=== PATIENT | male | born 1980 | race Caucasian/White ===

== ENCOUNTER 2017-01-01 08:56 | Emergency (ER) | payer BC, OTHER ==
--- NOTE | 2017-01-01 09:20 | ERPHSYRPT ---
- History of Present Illness Time Seen by Provider: 01/01/17 09:10 Source: patient Exam Limitations: no limitations Patient Subjective Stated Complaint: PT HERE FOR PAIN TO RIGHT FLANK AND ABD, WAS TREATED IN [place] FOR A KIDNEY STONE AND STATES PAIN MEDS ARE NOT HELPING LAST WAS AT 0530 TODAY, NO NAUSEA Triage Nursing Assessment: PT ALERT, WALKED IN, GAURDING ABD, RESP EASY,SKIN W/D Physician History: Pt. reports 4.8 mm right kidney stone yesterday while on vacation in [place]. He presents with worsening pain right flank. He is urinating without difficulty. Timing/Duration: yesterday Activites at Onset: none Quality: sharpness Onset Location: right flank Severity of Pain-Max: severe Severity of Pain-Current: severe Modifying Factors: Improves With: nothing Associated Symptoms: denies symptoms Prior abdominal problems: none Sexual intercourse history: non-contributory Allergies/Adverse Reactions: Penicillins Allergy (Verified 01/01/17 09:06) Home Medications: Ondansetron [Zofran Odt] 4 mg QID 01/01/17 [History] Oxycodone HCl/Acetaminophen [Percocet 5-325 mg Tablet] 1 ea Q6HPRN PRN 01/01/17 [History] Tamsulosin HCl 0.4 mg [Flomax 0.4 MG] 0.4 mg DAILY 01/01/17 [History] Hx Tetanus, Diphtheria Vaccination/Date Given: Yes Hx Influenza Vaccination/Date Given: No Hx Pneumococcal Vaccination/Date Given: No Immunizations Up to Date: Yes - Social History Smoking Status: Never smoker Exposure to second hand smoke: No Patient Lives Alone: No - Review of Systems Constitutional: No Symptoms Eyes: No Symptoms Ears, Nose, & Throat: No Symptoms Respiratory: No Symptoms Cardiac: No Symptoms Abdominal/Gastrointestinal: No Symptoms Genitourinary Symptoms: Other (right flank pain), No Dysuria Musculoskeletal: No Symptoms Skin: No Symptoms Neurological: No Symptoms Psychological: No Symptoms Endocrine: No Symptoms Hematologic/Lymphatic: No Symptoms - Nursing Vital Signs Nursing Vital Signs: Initial Vital Signs Temperature 98 F Temperature Source Oral Pulse Rate 76 Respiratory Rate 18 Blood Pressure [Right Arm] 157/90 Pain Intensity 6 - Physical Exam General Appearance: moderate distress Eye Exam: eyes nml inspection Ears, Nose, Throat Exam: normal ENT inspection, pharynx normal, moist mucous membranes Neck Exam: normal inspection, non-tender, supple, full range of motion Respiratory Exam: normal breath sounds, lungs clear, airway intact Cardiovascular Exam: regular rate/rhythm, normal heart sounds, normal peripheral pulses Gastrointestinal/Abdomen Exam: soft, normal bowel sounds Back Exam: CVA tenderness (right) Extremity Exam: normal inspection, normal range of motion, pelvis stable Neurologic Exam: alert, oriented x 3, cooperative Skin Exam: normal color, warm, dry Lymphatic Exam: adenopathy SpO2 Interpretation: normal SpO2: 97 Oxygen Delivery: Room Air - Course Nursing assessment & vital signs reviewed: Yes - CT Exams Abdomen/Pelvis CT Interpretation: Tele-radiologist Report (5-6 mm proximal right ureteral stone creating high-grade obstruction.) Ordered Tests: Active Orders 24 hr Category Date Time Status Clean Catch Urine Specimen STAT Care 01/01/17 09:23 Active IV Insertion STAT Care 01/01/17 09:21 Active ABDOMEN AND PELVIS W/0 CONTRAS [CT] Stat Exams 01/01/17 09:23 Completed CMP Stat Lab 01/01/17 09:25 Completed UA W/ MICROSCOPIC Stat Lab 01/01/17 10:51 Completed Medication Summary Discontinued Medications Generic Name Dose Route Start Last Admin Trade Name Freq PRN Reason Stop Dose Admin Hydromorphone HCl 1 mg 01/01/17 09:27 01/01/17 09:36 Hydromorphone 1 Mg/Ml Ampule IV 01/01/17 09:28 1 mg STAT ONE Administration Hydromorphone HCl Confirm 01/01/17 09:34 Hydromorphone 1 Mg/Ml Ampule Administered 01/01/17 09:35 Dose 1 mg .ROUTE .STK-MED ONE Sodium Chloride 1,000 mls @ 999 mls/hr 01/01/17 09:26 01/01/17 09:36 Sodium Chloride 0.9% 1000 Ml IV 01/01/17 10:26 999 mls/hr .Q1H1M STA Administration Sodium Chloride Confirm 01/01/17 09:34 Sodium Chloride 0.9% 1000 Ml Administered 01/01/17 09:35 Dose 1,000 mls @ ud .ROUTE .STK-MED ONE Ketorolac Tromethamine 30 mg 01/01/17 10:16 01/01/17 10:20 Toradol 30 Mg Injection IV 01/01/17 10:17 30 mg STAT ONE Administration Ketorolac Tromethamine Confirm 01/01/17 10:17 Toradol 30 Mg Injection Administered 01/01/17 10:18 Dose 30 mg .ROUTE .STK-MED ONE Ondansetron HCl 4 mg 01/01/17 09:27 01/01/17 09:36 Zofran 4 Mg/2 Ml Vial IV 01/01/17 09:28 4 mg STAT ONE Administration Ondansetron HCl Confirm 01/01/17 09:34 Zofran 4 Mg/2 Ml Vial Administered 01/01/17 09:35 Dose 4 mg .ROUTE .STK-MED ONE Lab/Rad Data: Laboratory Result Diagrams 01/01/17 09:25 Laboratory Results 01/01/17 01/01/17 Range/Units 10:51 09:25 Sodium 138 (136-145) mEq/L Potassium 3.8 (3.5-5.1) mEq/L Chloride 104 (98-107) mEq/L Carbon Dioxide 24.7 (21-32) mEq/L Anion Gap 13.1 (5-15) MEQ/L BUN 11 (9-20) mg/dL Creatinine 1.28 (0.55-1.30) mg/dl Estimated GFR > 60 ML/MIN Glucose 117 H (70-110) MG/DL Calcium 8.9 (8.5-10.1) mg/dL Total Bilirubin 1.90 H (0.2-1.0) mg/dL AST 30 (15-37) U/L ALT 45 (12-78) U/L Alkaline Phosphatase 74 (46-116) U/L Serum Total Protein 7.4 (6.4-8.2) gm/dL Albumin 4.0 (3.4-5.0) g/dL Ur Collection Type CLEAN CATCH Urine Color YELLOW (YELLOW) Urine Appearance CLEAR (CLEAR) Urine pH 7.0 (5-6) Ur Specific [place] 1.015 (1.005-1.025) Urine Protein NEGATIVE (Negative) Urine Glucose (UA) NEGATIVE (NEGATIVE) mg/dL Urine Ketones NEGATIVE (NEGATIVE) Urine Nitrite NEGATIVE (NEGATIVE) Urine Bilirubin NEGATIVE (NEGATIVE) Urine Urobilinogen 0.2 (0-1) mg/dL Urine WBC (Auto) NEGATIVE (NEGATIVE) Urine RBC (Auto) SMALL (0-5) Govind/ul Urine Microscopic RBC 5-10 (0-2) /HPF Ur Epithelial Cells FEW (FEW) /HPF Urine Bacteria FEW (NEGATIVE) /HPF Urine Mucus SLIGHT (NEGATIVE) /HPF Specimen Received 1045 -05 - Progress Progress: pain not gone completely Discussed with DrJayla: Other (Wil) Counseled pt/family regarding: lab results, diagnosis, need for follow-up, rad results - Departure Time of Disposition: 11:15 Departure Disposition: Transfer Clinical Impression: Ureterolithiasis, Obstructive uropathy, Hyperbilirubinemia Condition: Stable Critical Care Time: No
[2017-01-01] MEDS ORDERED: Sodium Chloride 0.9% 1000 ML 1,000 ML IV STA (09:26)
[2017-01-01] MEDS ORDERED: Hydromorphone 1 mg/ml Ampule IV ONE ×2 (09:27→11:37)
[2017-01-01] MEDS ORDERED: Zofran 4 MG/2 ML VIAL IV ONE (09:27)
[2017-01-01] MEDS ORDERED: Sodium Chloride 0.9% 1000 ML 1,000 ML ONE (09:34)
[2017-01-01] MEDS ORDERED: Zofran 4 MG/2 ML VIAL ONE (09:34)
[2017-01-01] MEDS ORDERED: Hydromorphone 1 mg/ml Ampule ONE ×2 (09:34→11:36)
[2017-01-01 09:45] LABS: ALKALINE PHOSPHATASE 74 U/L (46-116); ANION GAP 13.1 MEQ/L (5-15); BLOOD UREA NITROGEN 11 mg/dL (9-20); CHLORIDE 104 mEq/L (98-107); Carbon Dioxide 24.7 mEq/L (21-32); Glucose 117 MG/DL (70-110); Potassium 3.8 mEq/L (3.5-5.1); SGOT/AST 30 U/L (15-37); SGPT/ALT 45 U/L (12-78); SODIUM 138 mEq/L (136-145); Total Protein 7.4 gm/dL (6.4-8.2)
--- NOTE | 2017-01-01 10:11 | XRAY ---
Indication: Right flank pain. Stone. Multiple contiguous axial images obtained through the abdomen and pelvis without contrast using renal stone protocol. Comparison: None Lung bases are clear. Heart is not enlarged. There is a 5-6 mm calculus in the proximal right ureter, approximately L4 level. Proximal right ureter is prominent and there is moderate hydronephrosis with moderate perinephric stranding and tiny perinephric fluid consistent with high-grade obstruction. 3 additional right renal punctate calculi. Noncontrasted stomach and bowel loops appear nonobstructed. Mild fecal debris in the ascending and transverse colon. Normal-appearing appendix. No free fluid/air. Remaining liver, gallbladder, pancreas, spleen, adrenal glands, left kidney, left ureter, bladder, and aorta appear unremarkable for noncontrast exam. Osseous structures intact. Impression: 5-6 mm proximal right ureteral calculus producing high-grade obstruction. Additional right renal micro-calculi. CTDI 23.68
[2017-01-01] MEDS ORDERED: TORAdol 30 mg Injection IV ONE (10:16)
[2017-01-01] MEDS ORDERED: TORAdol 30 mg Injection ONE (10:17)
[2017-01-01 10:51] LABS: Collection Type CLEAN CATCH
[2017-01-01 10:52] LABS: COMPLETE URINE MICROSCOPIC? YES
[2017-01-01 11:04] LABS: Bacteria FEW /HPF (NEGATIVE); Epithelial Cells FEW /HPF (FEW); Mucus SLIGHT /HPF (NEGATIVE)
[2017-01-01 11:16] LABS: ADD URINE CULTURE? NO (NO)
[2017-01-01 11:21] VITALS: BP 138/76; PULSE 63
[2017-01-01 11:23] VITALS: O2SAT 97
[2017-01-01] MEDS ORDERED: DILAUDID 2 MG INJECTION IV PRN (11:32)
[2017-01-02 08:09] LABS: HEPATITIS B VIRUS CORE TOT AB Non Reactive (Non Reactive)
== END 2017-01-01 11:44 | disposition short-term general hospital (02) ==
LOC: ED 08:56
DX: N20.1 Calculus of ureter (principal); N13.9 Obstructive and reflux uropathy, unspecified; E80.6 Other disorders of bilirubin metabolism; R10.9 Unspecified abdominal pain
CPT/HCPCS: 36000; 36415; 74176; 80053; 80074; 81000; 96360; 96374; 96375; 96376; 99285; J1170; J1885; J2405

== ENCOUNTER 2019-10-05 21:40 | Emergency (ER) | payer BC ==
--- NOTE | 2019-10-05 21:43 | ERPHSYRPT ---
- History of Present Illness Time Seen by Provider: 10/05/19 21:43 Historian: patient Exam Limitations: no limitations Physician History: 39-year-old male who has no known cardiac history and presents with several day history of left side chest heaviness. There is some radiation of this heaviness and throbbing in his left upper arm and bicep. Patient does not take medications chronically. However, patient has been battling a sinus congestion problem and has been using Sudafed for this. Patient has also noticed in the last few days that his blood pressure has been elevated. Patient states specifically there is no pain it is a heaviness. Patient is not short of breath. He has no abdominal pain he has no nausea vomiting diarrhea. He has no cough symptoms. He has had no fever. States he did take 324 mg of baby aspirin today. Timing/Duration: other (Chronic for months) Activities at Onset: none Quality: pressure, other (Heaviness) Location: other (Anterior chest) Chest Pain Radiation: arm (Left upper arm and bicep) Severity of Pain-Max: mild Severity of Pain-Current: none Modifying Factors: Improves With: nothing Associated Symptoms: denies symptoms Prior Chest Pain/Cardiac Workup: no prior chest pain, no prior cardiac workup, non-cardiac Nitro Today/Relief: no nitro taken today Aspirin Treatment Today: 325 mg x 1, provided at home Allergies/Adverse Reactions: Penicillins Allergy (Verified 10/05/19 21:57) Home Medications: No Reportable Medications [No Reported Medications] 10/05/19 [History] Hx Tetanus, Diphtheria Vaccination/Date Given: Yes Hx Influenza Vaccination/Date Given: No Hx Pneumococcal Vaccination/Date Given: No - Review of Systems Constitutional: No Symptoms Eyes: No Symptoms Ears, Nose, & Throat: No Symptoms Respiratory: No Symptoms Cardiac: Other (Chest heaviness) Abdominal/Gastrointestinal: No Symptoms Genitourinary Symptoms: No Symptoms Musculoskeletal: No Symptoms Skin: No Symptoms Neurological: No Symptoms Psychological: No Symptoms Endocrine: No Symptoms Hematologic/Lymphatic: No Symptoms Immunological/Allergic: No Symptoms All Other Systems: Reviewed and Negative - Past Medical History Pertinent Past Medical History: Yes Neurological History: No Pertinent History ENT History: No Pertinent History Cardiac History: No Pertinent History Respiratory History: No Pertinent History Endocrine Medical History: No Pertinent History Musculoskeletal History: No Pertinent History GI Medical History: No Pertinent History History: No Pertinent History Psycho-Social History: No Pertinent History Male Reproductive Disorders: No Pertinent History Other Medical History: KIDNEY STONE - Past Surgical History Neuro Surgical History: No Pertinent History Cardiac: No Pertinent History Respiratory: No Pertinent History Gastrointestinal: No Pertinent History Genitourinary: No Pertinent History Musculoskeletal: No Pertinent History Male Surgical History: No Pertinent History - Social History Smoking Status: Never smoker Exposure to second hand smoke: No Drug Use: none Patient Lives Alone: No - Nursing Vital Signs Nursing Vital Signs: Initial Vital Signs O2 Sat by Pulse Oximetry 99 10/05/19 22:02 Pain Scale Pain Intensity 0 - Physical Exam General Appearance: no apparent distress, alert, anxiety Eye Exam: PERRL/EOMI, eyes nml inspection Ears, Nose, Throat Exam: normal ENT inspection, moist mucous membranes Neck Exam: normal inspection, non-tender, supple, full range of motion Respiratory Exam: normal breath sounds, lungs clear, airway intact, No chest tenderness, No respiratory distress Cardiovascular Exam: regular rate/rhythm, normal heart sounds, normal peripheral pulses Gastrointestinal/Abdomen Exam: soft, normal bowel sounds, No tenderness Rectal Exam: not done Back Exam: normal inspection, normal range of motion, No CVA tenderness, No vertebral tenderness Extremity Exam: normal inspection, normal range of motion, pelvis stable Neurologic Exam: alert, oriented x 3, cooperative, vp of digital marketing II-XII nml as tested, nml cerebellar function, nml station & gait Skin Exam: normal color, warm, dry Lymphatic Exam: No adenopathy SpO2 Interpretation: normal O2 Delivery: Room Air - Course Nursing assessment & vital signs reviewed: Yes EKG Interpreted by Me: RATE (82), Sinus Rhythm, NORMAL AXIS, NORMAL INTERVALS, NORMAL QRS, Other (No comparison EKG) Ordered Tests: Active Orders 24 hr Category Date Time Status Careers Counsellor STAT Care 10/05/19 21:50 Active EKG-ER Only STAT Care 10/05/19 21:50 Active IV Insertion STAT Care 10/05/19 21:50 Active Pulse Oximetry (ED) STAT Care 10/05/19 21:50 Active CHEST 1 VIEW (PORTABLE) Stat Exams 10/05/19 21:50 Taken CBC W DIFF Stat Lab 10/05/19 22:11 Completed CMP Stat Lab 10/05/19 22:11 Completed D-DIMER QUANTITATIVE Stat Lab 10/05/19 22:11 Completed NT PRO BNP Stat Lab 10/05/19 22:11 Completed PROTIME WITH INR Stat Lab 10/05/19 22:11 Completed TROPONIN Q3H Lab 10/05/19 22:11 Completed TROPONIN Q3H Lab 10/06/19 01:00 Ordered TROPONIN Q3H Lab 10/06/19 04:00 Ordered TROPONIN Q3H Lab 10/06/19 07:00 Ordered TROPONIN Q3H Lab 10/06/19 10:00 Ordered Medication Summary Discontinued Medications Generic Name Dose Route Start Last Admin Trade Name Monchoq PRN Reason Stop Dose Admin Aspirin 324 mg 10/05/19 21:50 10/05/19 22:00 Baby Aspirin 81 Mg Chew PO 10/05/19 21:51 324 mg STAT ONE Administration Lab/Rad Data: Laboratory Result Diagrams 10/05/19 22:11 10/05/19 22:11 Laboratory Results 10/05/19 10/05/19 10/05/19 Range/Units 22:11 22:11 22:11 WBC (4.0-10.5) K/mm3 RBC (4.1-5.6) M/mm3 Hgb (12.5-18.0) gm/dl Hct (42-50) % MCV (78-100) fl MCH (26-32) pg MCHC (32-36) g/dl RDW (11.5-14.0) % Plt Count (150-450) K/mm3 MPV (7.5-11.0) fl Gran % (36.0-66.0) % Eos # (Auto) (0-0.5) Absolute Lymphs (auto) (1.0-4.6) Absolute Monos (auto) (0.0-1.3) Lymphocytes % (24.0-44.0) % Monocytes % (0.0-12.0) % Eosinophils % (0.00-5.0) % Basophils % (0.0-0.4) % Absolute Granulocytes (1.4-6.9) Basophils # (0-0.4) PT 11.0 (8.83-12.87) SECONDS INR 0.97 (0.8-3.0) D-Dimer 247 (215-500) ng/mL Sodium 140 (137-145) mmol/L Potassium 4.0 (3.5-5.1) mmol/L Chloride 104 (98-107) mmol/L Carbon Dioxide 29 (22-30) mmol/L Anion Gap 10.5 (5-15) MEQ/L BUN 14 (9-20) mg/dL Creatinine 0.82 (0.66-1.25) mg/dL Estimated GFR > 60.0 ML/MIN Glucose 98 (74-106) mg/dL Calcium 9.4 (8.4-10.2) mg/dL Total Bilirubin 0.70 (0.2-1.3) mg/dL AST 27 (17-59) U/L ALT 24 (0-50) U/L Alkaline Phosphatase 96 (38-126) U/L Troponin I < 0.012 (0.000-0.034) ng/mL NT-Pro-B Natriuret Pep 18.0 (0-450) pg/mL Serum Total Protein 7.7 (6.3-8.2) g/dL Albumin 4.6 (3.5-5.0) g/dL 10/05/19 Range/Units 22:11 WBC 10.0 (4.0-10.5) K/mm3 RBC 5.04 (4.1-5.6) M/mm3 Hgb 15.3 (12.5-18.0) gm/dl Hct 44.6 (42-50) % MCV 88.5 (78-100) fl MCH 30.4 (26-32) pg MCHC 34.3 (32-36) g/dl RDW 12.7 (11.5-14.0) % Plt Count 353 (150-450) K/mm3 MPV 10.7 (7.5-11.0) fl Gran % 54.3 (36.0-66.0) % Eos # (Auto) 0.29 (0-0.5) Absolute Lymphs (auto) 3.45 (1.0-4.6) Absolute Monos (auto) 0.74 (0.0-1.3) Lymphocytes % 34.5 (24.0-44.0) % Monocytes % 7.4 (0.0-12.0) % Eosinophils % 2.9 (0.00-5.0) % Basophils % 0.9 (0.0-0.4) % Absolute Granulocytes 5.43 (1.4-6.9) Basophils # 0.09 (0-0.4) PT (8.83-12.87) SECONDS INR (0.8-3.0) D-Dimer (215-500) ng/mL Sodium (137-145) mmol/L Potassium (3.5-5.1) mmol/L Chloride (98-107) mmol/L Carbon Dioxide (22-30) mmol/L Anion Gap (5-15) MEQ/L BUN (9-20) mg/dL Creatinine (0.66-1.25) mg/dL Estimated GFR ML/MIN Glucose (74-106) mg/dL Calcium (8.4-10.2) mg/dL Total Bilirubin (0.2-1.3) mg/dL AST (17-59) U/L ALT (0-50) U/L Alkaline Phosphatase (38-126) U/L Troponin I (0.000-0.034) ng/mL NT-Pro-B Natriuret Pep (0-450) pg/mL Serum Total Protein (6.3-8.2) g/dL Albumin (3.5-5.0) g/dL - Progress Progress: improved, re-examined Air Movement: good Progress Note: 10/05/19 22:57 Chest x-ray reveals no acute process. Blood Culture(s) Obtained: No Antibiotics given: No Counseled pt/family regarding: lab results, diagnosis, need for follow-up, rad results - Departure Departure Disposition: Home Clinical Impression: Mild hypertension, Chest pain, non-cardiac Condition: Stable Critical Care Time: No Referrals: ESTEFANI WEBB PA [Primary Care Provider] - Additional Instructions: Drink plenty of fluids. Stop pseudoephedrine. Keep a daily log of your blood pressure as discussed. Call your primary care physician tomorrow to make arrangements for follow-up appointment.
[2019-10-05] MEDS ORDERED: BABY ASPIRIN 81 MG CHEW PO ONE (21:50)
[2019-10-05 22:15] LABS: Absolute Neutrophil Ct (ANC) 5.43 (1.4-6.9); BASOPHIL % 0.9 % (0.0-0.4); Basophil (Absolute #) 0.09 (0-0.4); Eosinophil % 2.9 % (0.00-5.0); Eosinophil (Absolute #) 0.29 (0-0.5); Hematocrit 44.6 % (42-50); Hemoglobin 15.3 gm/dl (12.5-18.0); Lymphocyte (Absolute #) 3.45 (1.0-4.6); Lymphocytes % 34.5 % (24.0-44.0); Mean Cell Volume 88.5 fl (78-100); Mean Corpuscular Hemoglobin 30.4 pg (26-32); Mean Corpuscular Hgb Concent. 34.3 g/dl (32-36); Mean Platelet Volume 10.7 fl (7.5-11.0); Monocyte (Absolute #) 0.74 (0.0-1.3); Monocytes % 7.4 % (0.0-12.0); Neutrophil % 54.3 % (36.0-66.0); Platelet Count 353 K/mm3 (150-450); Red Blood Count 5.04 M/mm3 (4.1-5.6); Red Cell Distribution Width 12.7 % (11.5-14.0)
[2019-10-05 22:32] LABS: INR 0.97 (0.8-3.0)
[2019-10-05 22:36] LABS: ALBUMIN 4.6 g/dL (3.5-5.0); ALKALINE PHOSPHATASE 96 U/L (38-126); ANION GAP 10.5 MEQ/L (5-15); BLOOD UREA NITROGEN 14 mg/dL (9-20); CHLORIDE 104 mmol/L (98-107); Calcium 9.4 mg/dL (8.4-10.2); Carbon Dioxide 29 mmol/L (22-30); Creatinine 1 0.82 mg/dL (0.66-1.25); Glucose 98 mg/dL (74-106); SGOT/AST 27 U/L (17-59); SGPT/ALT 24 U/L (0-50); SODIUM 140 mmol/L (137-145); Total Protein 7.7 g/dL (6.3-8.2)
[2019-10-05 23:47] VITALS: BP 139/91; PULSE 72; O2SAT 96
--- NOTE | 2019-10-06 08:56 | XRAY ---
Indication: Chest heaviness. Comparison: None Portable chest demonstrates normal heart, lungs, and bony thorax.
== END 2019-10-05 23:50 | disposition home or self-care (01) ==
LOC: ED 21:40
DX: I10 Essential (primary) hypertension (principal); R07.89 Other chest pain
CPT/HCPCS: 36000; 36415; 71045; 80053; 83880; 84484; 85025; 85379; 85610; 93005; 93041; 94760; 99284; A9270-GY